=== PATIENT | male | born 1955 | race Caucasian/White ===

== ENCOUNTER 2022-11-02 09:21 | Day surgery (SDC) | payer OTHER ==
[~2022-11-02] VITALS: Ht 172.7 cm; Wt 119.3 kg
[~2022-11-02 09:21] MED LIST: ALLO300T2 PO; FAMO40TA3 PO; LISI10TA24 PO; NS 1,000 ML IV ONE; TAMS1CAP17 PO
[2022-11-02 11:00] VITALS: TEMP 97.6
[2022-11-02 11:19] VITALS: BP 139/79; O2SAT 97
== END 2022-11-02 11:29 | disposition home or self-care (01) ==
LOC: M OPP 09:21
PROVIDERS: ATTEND Surgery
DX: D12.6 Benign neoplasm of colon, unspecified (principal); K57.30 Diverticulosis of large intestine without perforation or abscess without bleeding; K52.9 Noninfective gastroenteritis and colitis, unspecified; K31.89 Other diseases of stomach and duodenum; K30 Functional dyspepsia; Z79.1 Long term (current) use of non-steroidal anti-inflammatories (NSAID); Z79.2 Long term (current) use of antibiotics; Z79.83 Long term (current) use of bisphosphonates; Z79.899 Other long term (current) drug therapy; Z88.8 Allergy status to other drugs, medicaments and biological substances

== ENCOUNTER → 2024-12-19 | Outpatient (CLI) | payer OTHER ==
[~2024-12-19] MED LIST changes: -NS 1,000 ML IV ONE
== END ==
LOC: M SLEEP 20:00
PROVIDERS: ATTEND Registered Nurse
DX: G47.33 Obstructive sleep apnea (adult) (pediatric) (principal)